=== PATIENT | female | born 1970 | race Caucasian/White ===

== ENCOUNTER 2022-03-27 13:15 | Outpatient (CLI) | payer BC, SELFPAY | END 2022-03-27 13:16 | disposition home or self-care (01) | LOC: OP CLINIC 13:16 | PROVIDERS: PCP Nurse Practitioner Family; Visit Provider Surgery | DX: R19.5 Other fecal abnormalities (principal); K64.8 Other hemorrhoids; K63.5 Polyp of colon; K62.1 Rectal polyp; K22.89 Other specified disease of esophagus; K31.89 Other diseases of stomach and duodenum; R10.13 Epigastric pain | CPT/HCPCS: 43239; 45380; 45385; 88305; 99153; J1200; J2250; J2405; J3010 ==

== ENCOUNTER 2022-06-12 14:52 | Outpatient (CLI) | payer BC, SELFPAY ==
--- NOTE | 2022-06-12 15:00 | CRLHL7_ITS ---
For Patients: As a result of the Century Cures Act, medical imaging exams and procedure reports are released immediately into your electronic medical record. You may view this report before your referring provider. If you have questions, please contact your health care provider. INDICATION: Abdominal pain. COMPARISON: None. TECHNIQUE: 69 mL Isovue-370 IV contrast. FINDINGS: Chest: Unremarkable. Abdomen and pelvis: Dense low-attenuation of the liver parenchyma. Small benign cyst left ovary. Minor atherosclerotic calcification non aneurysmal aorta. IMPRESSION: 1. Dense plaque steatosis. 2. No findings for source of abdominal pain. Please note that all CT scans at this facility use dose modulation, iterative reconstruction, and/or weight-based dosing when appropriate to reduce radiation dose to as low as reasonably achievable. Dictated by Shay Flores MD @ 06/13/2022 1:52:26 PM (Electronically Signed)
--- OUTSIDE RECORDS SUMMARY | 2022-06-12 15:13 | XMS_ITS | Clinical Summary ---
:1970 Author Organization [facility] [place] [address] Care Team Providers Name Role Phone None Primary Care Provider Unavailable Allergies Not on File Medications Not on file Active Problems Not on file Encounters Date Type Specialty Care Team Description 03/27/2022 Lab Requisition Luis Shah MD from Last 3 Months Social History Tobacco Use Types Packs/Day Years Used Date Never Assessed Sex Assigned at Date Recorded Not on file Plan of Treatment Health Maintenance Due Date Last Done Comments COVID-19 vaccine series (#1) 06/25/1972 Tdap 12/24/1982 Depression screening for age 12+ 1983 BMI (ht and wt on same day) for age 18+ 12/24/1989 Hepatitis C screening for age 18-79 12/24/1989 Tetanus booster 1991 Colonoscopy through age 75 12/24/2016 Lipids for age 45-75 12/24/2016 Mammogram for age 45-75 12/24/2016 Zoster (shingles) series for age 50+ (1 of 12/24/2021 2) Influenza for age 50-64 05/15/2022 Pap test for age 21-65 11/29/2024 11/29/2021, 11/29/2021 Procedures Procedure Name Priority Date/Time Associated Diagnosis Comme nts LAB TRACKING EVENT Routine 03/27/2022 2:42 PM CDT PATH TISSUE EXAM Routine 03/27/2022 12:00 PM Resu lts for this CDT procedure are i n the results section. from Last 3 Months Results LAB TRACKING EVENT (03/27/2022 2:42 PM CDT) Specimen Anatomical Collection Method Collection Time Receive d Time (Source) Location / / Volume Laterality Other (Other) Client Collect / 03/27/2022 2:42 PM 03/14 9:53 Unknown CDT PM CDT Luis Shah MD LAB BILL ONLY Performing Organization Address City/State/ZIP Code Phon e Number Chip Estimate [address] [place] [address] LABORATORY-CENTRAL 2000 LABORATORY PATH TISSUE EXAM (03/27/2022 12:00 PM CDT) Component Value Ref Test Analysis Performed At [facility] gist Range Method Time Signature Case Report Pathology Report ?Case: [id number] ? 03/31/2022 [facility] Authorizing Provider: ??Luis Manning MD ?Collected: ? 03/27/2022 1200 ? 5:10 PM HEALTH Ordering Location: ? [facility] LAB ?Received: ?03/28/2022 0907 ? CDT LIZ CUMMINGS Pathologist: ? Yen Ibrahim, DO ? ENTRAL Specimens: ?? A) - Duodenum Biopsy ? LABORATORY ? B) - Stom ach Biopsy ? C) - Antr um Biopsy ? D) - Esop hageal Biopsy, z line ? E) - Hemingway n Biopsy ? F) - Desc ending Colon Biopsy ? G) - Sigm oid Biopsy ? H) - Sigm oid Biopsy ? I) - Rect al Biopsy ? Final A) DUODENUM, BIOPSY: 03/31/2022 [facility] Electronically Diagnosis 1. Normal duodenal mucosa 5:10 PM HEAL TH signed by 2. Negative for celiac disease and other enteropathy CDT LABORATORY-Yen Man, o n B) STOMACH, BIOPSY: LABORATORY 03/31/2022 at 1. Normal gastric antral and body mucosae 5:10 PM 2. Negative for Helicobacter C) STOMACH, ANTRUM, BIOPSY: 1. Erosive reactive gastropathy (see comment) ?? a. Sampling: Antrum ?? b. Distribution: Antrum 2. Negative for chronic inflammation, atrophy and Helicobact er D) ESOPHAGUS, Z-LINE, BIOPSY: 1. Changes consistent with reflux esophagitis including rare neutrophils ?? and reactive changes 2. Negative for eosinophilic esophagitis 3. Negative for columnar mucosa E) COLON, RANDOM, BIOPSY: 1. Normal colonic mucosa 2. Negative for microscopic, active, and chronic colitis F) COLON, DESCENDING, POLYPECTOMY: 1. Tubular adenoma 2. Negative for high grade dysplasia 3. Per the colonoscopy report: ?? a. Polyp size: 4 mm ?? b. Resection: Complete ?? c. Retrieval: Complete G) COLON, SIGMOID, POLYPECTOMY: 1. Tubular adenoma consistent with advanced lamin venecia due to size (see comment) 2. Negative for high grade dysplasia and malignancy 3. Per the colonoscopy report: ?? a. Polyp size: 12 mm ?? b. Resection: Complete ?? c. Retrieval: Complete H) COLON, SIGMOID, POLYPECTOMIES: 1. Hyperplastic polyps (2) I) RECTUM, POLYPECTOMY: 1. Hyperplastic polyp Comment C) The likely etiology is an ongoing non-inflammatory type mucosal injury due to a chemical type of injury; this may be due to ingestion of non- steroidal anti-inflammatory drugs, aspirin (via prostaglan 03/31/2022 [facility] din-mediated injury), excess alcohol, corticosteroids, or bile/alkaline reflux, the latter usually in the setting of a gastroenteric anastomosis. 5:10 PM HEALTH CDT LABORATORY-C G) Advanced adenoma of the c olorectum is defined by the [employer] (ACG) as an adenoma that is 1 cm or more in size, contains an appreciable villous component, or has high grad ENTRAL e dysplasia (Pooja Tapia. [2008 ] Gastroenterology, PMID - [id number]). Patients with advanced adenomas are at an increased risk for synchronous and metachronous additional advanced adenomas. Appropriate follow-up is suggested. LABORATORY Clinical Ms. Oliva is a 51 03/31/2022 [facility] Information y.o. who presents 5:10 PM HEALTH with epigastric CDT LABORATORY-C abdominal pain. ENTRAL Upper endoscopy LABORATORY examination revealed an irregular Z-line, erosive gastropathy, and a normal duodenum. Colonoscopy examination revealed multiple polyps and an otherwise unremarkable colonic mucosa. Gross A) Received in formalin are 5 pink-soler soler mucosal fragments ranging from 2 mm to 4 mm in greatest dimension, which are entirely submitted in one cassette. It is labeled with the patient's name and designated duodenum. 03/31/2022 [facility] Description 5:10 PM HEALTH B) Received in formalin are 5 soler mucosal fragments ranging from 1 mm to 7 mm in greatest dimension, which are entirely submitted in one cassette. It is labeled with the patient's name and designated random stomach. CDT LABORATORY-C ENTRAL C) Received in formalin are 2 soler mucosal fragments averaging 3 mm in greatest dimension, which are entirely submitted in one cassette. It is labeled with the patient's name and designated antral erosions. LABORATORY D) Received in formalin are 2 soler mucosal fragments ranging from 3 mm to 5 mm in greatest dimension, which are entirely submitted in one cassette. It is labeled with the patient's name and designated Z-line. E) Received in formalin are 8 soler mucosal fragments averaging 3 mm in greatest dimension, which are entirely submitted in one cassette. It is labeled with the patient's name and designated random colon. F) Received in formalin are 7 soler mucosal fragments ranging from 1 mm to 3 mm in greatest dimension, which are entirely submitted in one cassette. It is labeled with the patient's name and designated descending colon. G) Received in formalin is a 1 mm soler-pink rubbery polyp. Apparent base is inked blue and bisected. Entirely submitted in a single cassette. It is labeled with the patient's name and designated sigmoid colon polyp. H) Received in formalin are 3 soler mucosal fragments ranging from 6 mm to 11 mm in greatest dimension, which are entirely submitted in one cassette. It is labeled with the patient's name and designated sigmoid colon polyps. I) Received in formalin are 2 soler mucosal fragments ranging from 1 mm to 8 mm in greatest dimension, which are entirely submitted in one cassette. It is labeled with the patient's name and designated rectum. Patrica M Noon 03/28/2022 11:05 AM Microscopic The final 03/31/2022 [facility] Description diagnosis is based 5:10 PM HEALTH on microscopic CDT LABORATORY-C examination of ENTRAL appropriate LABORATORY sections of all specimens. Additional 03/31/2022 [facility] Information Interpreted at [facility], Central Laboratory - [address] [place] [address] [place] [address] 5:10 PM HEALTH CDT LABORATORY-C ENTRAL LABORATORY Specimen Anatomical Collection Method Collection Time Receive d Time (Source) Location / / Volume Laterality Other (Duodenum 03/27/2022 12:00 03/28/20 9:07 Biopsy) PM CDT AM CDT Specimen 03/27/2022 12:00 03/28/2022 9:07 (specimen) PM CDT AM CDT (Stomach Biopsy) Specimen 03/27/2022 12:00 03/28/2022 9:07 (specimen) PM CDT AM CDT (Antrum Biopsy) Specimen 03/27/2022 12:00 03/28/2022 9:07 (specimen) PM CDT AM CDT (Esophageal Biopsy) Specimen 03/27/2022 12:00 03/28/2022 9:07 (specimen) PM CDT AM CDT (Colon Biopsy) Specimen 03/27/2022 12:00 03/28/2022 9:07 (specimen) PM CDT AM CDT (Descending Colon Biopsy) Specimen 03/27/2022 12:00 03/28/2022 9:07 (specimen) PM CDT AM CDT (Sigmoid Biopsy) Specimen 03/27/2022 12:00 03/28/2022 9:07 (specimen) PM CDT AM CDT (Sigmoid Biopsy) Specimen 03/27/2022 12:00 03/28/2022 9:07 (specimen) PM CDT AM CDT (Rectal Biopsy) Luis Shah MD PATHOLOGY/CYTOLOGY Performing Organization Address City/State/ZIP Code Phon e Number Chip Estimate [address] [place] [address] LABORATORY-CENTRAL 2000 LABORATORY from Last 3 Months Insurance Payer Benefit Plan / Subscriber ID Effective Dates Phone Addre ss Type Group [facility] [id number] 2019-Present [address] [address] [place] [address] Guarantor Name Account Type Relation to Date of Phone Bill ing Patient Address Kali Oliva Personal/Family 04/11/1967 [address] (Home) [place] [address] Care Teams Aircraft Maintenance Instructor Relationship Specialty Start Date End Date None PCP - General 02/01/20 .
== END 2022-06-12 14:53 | disposition home or self-care (01) ==
LOC: CT 14:53
PROVIDERS: PCP Nurse Practitioner Family; Visit Provider Nurse Practitioner Family
DX: R10.9 Unspecified abdominal pain (principal); K76.0 Fatty (change of) liver, not elsewhere classified
CPT/HCPCS: 71260; 74177; Q9967

== ENCOUNTER 2022-08-11 15:17 | Outpatient (CLI) | payer BC, SELFPAY ==
--- NOTE | 2022-08-11 15:20 | CRLHL7_ITS ---
For Patients: As a result of the Century Cures Act, medical imaging exams and procedure reports are released immediately into your electronic medical record. You may view this report before your referring provider. If you have questions, please contact your health care provider. BILATERAL SCREENING MAMMOGRAM WITH COMPUTER-AIDED DETECTION AND TOMOSYNTHESIS TECHNIQUE: CC and MLO views were obtained. These mammographic images have been obtained using full-field digital technique. These mammographic images were interpreted with the benefit of computer-aided detection. Breast tomosynthesis was used in this interpretation. COMPARISON FILM: None. Baseline study. FINDINGS: There are scattered areas of fibroglandular density. IMPRESSION: There is no radiographic evidence for malignancy. ASSESSMENT: BI-RADS Category 1: Negative RECOMMENDATION: Routine screening mammogram in 1 year. A lay language report of this examination will be provided to the patient. JOVAN DIAZ M.D. Diagnostic Radiologist [email or web address] Transcribed: 3:[address]/Dictated by: Jovan Diaz MD @ 08/12/2022 1:01:00 PM (Electronically Signed)
--- OUTSIDE RECORDS SUMMARY | 2022-08-11 15:35 | XMS_ITS | Clinical Summary ---
:1970 Author Organization [facility] [place] [address] Care Team Providers Name Role Phone None Primary Care Provider Unavailable Allergies Not on File Medications Not on file Active Problems Not on file Social History Tobacco Use Types Packs/Day Years Used Date Never Assessed Sex Assigned at Date Recorded Not on file Plan of Treatment Upcoming Encounters Date Type Specialty Care Team Description 08/14/2022 Orders Only 09/17/2022 Office Visit Evangelista Teresa MD [address] [place], [place] [address] (Wo rk) Health Maintenance Due Date Last Done Comments COVID-19 vaccine series (#1) 06/25/1972 Tdap 12/24/1982 Depression screening for age 12+ 1983 HIV for age 15-65 12/24/1986 BMI (ht and wt on same day) for age 18+ 12/24/1989 Hepatitis C screening for age 18-79 12/24/1989 Tetanus booster 1991 Lipids for age 45-75 12/24/2016 Mammogram for age 45-75 12/24/2016 Zoster (shingles) series for age 50+ (1 of 12/24/2021 2) Influenza for age 50-64 05/15/2022 Pap test for age 21-65 11/29/2024 11/29/2021, 11/29/2021 Colonoscopy through age 75 03/27/2032 03/27/2022 Results Not on filefrom Last 3 Months Care Teams Belt Glass Sander Relationship Specialty Start Date End Date None PCP - General 02/01/20 .
== END 2022-08-11 15:18 | disposition home or self-care (01) ==
LOC: MAMMO 15:18
PROVIDERS: PCP Nurse Practitioner Family; Visit Provider Nurse Practitioner Family
DX: Z12.31 Encounter for screening mammogram for malignant neoplasm of breast (principal)
CPT/HCPCS: 77063; 77067

== ENCOUNTER 2022-08-14 12:48 | Outpatient (CLI) | payer BC, SELFPAY ==
--- OUTSIDE RECORDS SUMMARY | 2022-08-14 13:27 | XMS_ITS | Clinical Summary ---
:1970 Author Organization [facility] Address [place] [address] Care Team Providers Name Role Phone None Primary Care Provider Unavailable Allergies Not on File Medications Not on file Active Problems Not on file Social History Tobacco Use Types Packs/Day Years Used Date Never Assessed Sex Assigned at Date Recorded Not on file Plan of Treatment Upcoming Encounters Date Type Specialty Care Team Description 09/17/2022 Office Visit Evangelista Teresa MD [address] [place], [place] [address] (Wo rk) Health Maintenance Due Date Last Done Comments COVID-19 vaccine series (#1) 06/25/1972 03/04/2022, 021, 01/16/2021 Tdap 12/24/1982 Depression screening for age 12+ 1983 HIV for age 15-65 12/24/1986 BMI (ht and wt on same day) for age 0412/24/1989 18+ Hepatitis C screening for age 18-79 12/24/1989 Tetanus booster 1991 Lipids for age 45-75 12/24/2016 Mammogram for age 45-75 12/24/2016 Zoster (shingles) series for age 50+ 12/24/2021 (1 of 2) Influenza for age 50-64 05/15/2022 Pap test for age 21-65 11/29/2024 11/29/2021, 11/29/2021 Colonoscopy through age 75 03/27/2032 03/27/2022 Results Not on filefrom Last 3 Months Care Teams Tail Sawyer Relationship Specialty Start Date End Date None PCP - General 02/01/20 .
[2022-08-14 13:39] VITALS: RESP 16
--- NOTE | 2022-08-14 13:39 | ED.NURSE ---
unable to do the test as speed was too fast and stepped off the tredmill.
--- NOTE | 2022-08-14 13:44 | PM.ST ---
Stress Test Note Date Time Seen by Provider: 13:44 Date Seen: 08/14/22 Date of test: 08/14/22 Providers Primary care provider: Ariana Duke Stress test physician: Laisha Perdomo Stress Test Note Stress test ordered: Stress Echo Results discussion: Patient was attempted on a standard Blas protocol treadmill stress echo. Within seconds of the treadmill starting, she jumped off stating it was too fast. I reviewed with her that unfortunately this was not going to go any slower. I did contact her primary care provider Giancarlo Duke whom will schedule a Lexiscan for her. We will not be able to perform the test today. She will be discharged to home. Follow up suggested: Her primary care provider will be ordering a Lexiscan.
== END 2022-08-14 13:35 | disposition home or self-care (01) ==
LOC: STRESS 12:48
PROVIDERS: PCP Nurse Practitioner Family; Visit Provider Nurse Practitioner Family
DX: R07.9 Chest pain, unspecified (principal); R06.09 Other forms of dyspnea

== ENCOUNTER 2022-08-19 09:41 | Outpatient (CLI) | payer BC, SELFPAY ==
--- OUTSIDE RECORDS SUMMARY | 2022-08-19 10:01 | XMS_ITS | Clinical Summary ---
:1970 Author Organization [facility] [place] [address] Care Team Providers Name Role Phone None Primary Care Provider Unavailable Allergies Not on File Medications Not on file Active Problems Not on file Encounters Date Type Specialty Care Team Description 08/14/2022 Orders Only <No scans attac hed> from Last 3 Months Social History Tobacco Use Types Packs/Day Years Used Date Never Assessed Sex Assigned at Date Recorded Not on file Plan of Treatment Upcoming Encounters Date Type Specialty Care Team Description 08/26/2022 Orders Only Kaylin Renteria 08/26/2022 Orders Only Kaylin Renteria 09/17/2022 Office Visit Evangelista Teresa MD [address] [place], [place] [address] (Wo rk) Health Maintenance Due Date Last Done Comments Tdap 12/24/1982 Depression screening for age 12+ 1983 HIV for age 15-65 12/24/1986 BMI (ht and wt on same day) for age 0412/24/1989 18+ Hepatitis C screening for age 18-79 12/24/1989 Tetanus booster 1991 Lipids for age 45-75 12/24/2016 Mammogram for age 45-75 12/24/2016 Zoster (shingles) series for age 50+ 12/24/2021 (1 of 2) COVID-19 vaccine series (4 - Booster 04/29/2022 03/04/2022, 02/14/2021, for Moderna series) 01/16/2021 Influenza for age 50-64 05/15/2022 Pap test for age 21-65 11/29/2024 11/29/2021, 11/29/2021 Colonoscopy through age 75 03/27/2032 03/27/2022 Procedures Procedure Name Priority Date/Time Associated Diagnosis Comme nts ECHO LIMITED WO Routine 08/14/2022 1:42 PM Chest pain Result s for this CONTRAST POLYMER ENGINEER procedure are i n the results section. from Last 3 Months Results ECHO LIMITED WO CONTRAST (08/14/2022 1:42 PM POLYMER ENGINEER) P athologist Signature LVEDD 4.1 cm EJECTION 60 - 65% FRACTION Anatomical Region Laterality Modality HEART Ultrasound Specimen (Source) Anatomical Collection Method Collection Time Re ceived Time Location / / Volume Laterality 08/14/2022 1:20 PM POLYMER ENGINEER Narrative 08/15/2022 2:54 PM POLYMER ENGINEER ECHOCARDIOGRAM SHAHIDA CREWS ? Accessi on#: ?? [id number] : ?1970 51 years Study Date: ?? 08/14/2022 1:20:51 PM Gender: F ?BP: ? 180/102 mmHg Height: 145.00 cm ?BSA: ?1.53 m? ?? Weight: 62.00 kg ? Tech: ? [facility] ? Referring MD: ARIANA DUKE Site: ? [facility] Reading Location: MOBILE-OP Procedure: Limited 2D , Color Doppler an d Limited Spectral Doppler. Indication for study: CP Cardiac Rhythm: Regular.Study quality: G ood. Final Impressions: Limited Echocardiogram performed 1. Patient initially scheduled for a st ress echo but she declined the stress portion of the test so a limited echo was performed. 2. Normal LV size, normal global systol ic function with an estimated EF of 60 - 65%. 3. Right ventricular cavity size is nor mal, global systolic RV function is normal. 4. Mildly enlarged left atrium. 5. The mitral valve is myxomatous, mode rate mitral regurgitation. Comparison There are no prior studies on this patie nt for comparison purposes. Chamber Sizes and Function Normal left ventricular size, normal shilpa bal systolic function with an estimated EF of 60 - 65%. No definite resting regional wall motion abnormality seen. Left atrial size is mildly enlarged. Right vent ricular cavity size is normal, global sy stolic RV function is normal. RV wall thickness is normal. The right atrium is normal. The pulmonary artery is of normal size and origin. The sinus of Valsalva is normal sized. The ascending aorta is no rmal sized. Valves, RV Pressures and Diastolic Funct ion The aortic valve is trileaflet, no steno sis and no regurgitation. The mitral valve is myxomatous, moderate mitral regurgitation. The tricuspid valve is not well visualized. Tricuspid regurgitation is no t well visualized. Unable to assess righ t ventricular systolic pressure. The pulmonic valve is normal. Trace pulmonic regurgitation is present on color flow. Masses, Effusion, Shunts There is no pericardial effusion. The in ferior vena cava is normal sized, respiratory size variation greater than 50%. MEASUREMENTS AND CALCULATIONS 2-D Measurements and LV Function: LVID (d) 4.1 cm LV FS% (2D) ?? 28 % LVID (s) 3.0 cm LVOT diameter 1.4 cm IVS (d) ??1.1 cm HR ?83 bpm LVPW (d) 1.1 cm Ao Sinus 3.7 cm Asc Ao ?? 3.1 cm LA ? 3.9 cm Diastology: Mitral E Peak 0.86 m/s A Peak 1.29 m/s E/A ?0.7 DT ? 162 msec Mitral Valve: MVA ?4.7 cm? ?? MR TVI 2.06 m MV P /2 47 msec . This study was interpreted by an [facility] redited facility. CC: [facility] and [facility]. ??Final ?? Procedure Note Reggie Helms MD - 2 ECHOCARDIOGRAM SHAHIDA CREWS : 1970 51 years Study Date: 08/14 1:20:51 PM Gender: F BP: 180/102 mmHg Height: 145.00 cm BSA: 1.53 m? ?? Weight: 62.00 kg Tech: [facility] Referring MD: ARIANA DUKE Site: [facility] Reading Location: MOBILE-OP Procedure: Limited 2D , Color Doppler an d Limited Spectral Doppler. Indication for study: CP Cardiac Rhythm: Regular.Study quality: G ood. Final Impressions: Limited Echocardiogram performed 1. Patient initially scheduled for a st ress echo but she declined the stress portion of the test so a limited echo was performed. 2. Normal LV size, normal global systol ic function with an estimated EF of 60 - 65%. 3. Right ventricular cavity size is nor mal, global systolic RV function is normal. 4. Mildly enlarged left atrium. 5. The mitral valve is myxomatous, mode rate mitral regurgitation. Comparison There are no prior studies on this patie nt for comparison purposes. Chamber Sizes and Function Normal left ventricular size, normal shilpa bal systolic function with an estimated EF of 60 - 65%. No definite resting regional wall motion abnormality seen. Left atrial size is mildly enlarged. Right ventricular cavity size is normal, global systolic R V function is normal. RV wall thickness is normal. The right atrium is normal. The pulmonary artery is of normal size and origin. The sinus of Valsalva is normal sized. The ascending aorta is normal sized. Valves, RV Pressures and Diastolic Funct ion The aortic valve is trileaflet, no steno sis and no regurgitation. The mitral valve is myxomatous, moderate mitral regurgitation. The tricuspid valve is not well visualized. Tricuspid regurgitation is not well visualized. Unable to assess right ventr icular systolic pressure. The pulmonic valve is normal. Trace pulmonic regurgitation is present on color flow. Masses, Effusion, Shunts There is no pericardial effusion. The in ferior vena cava is normal sized, respiratory size variation greater than 50%. MEASUREMENTS AND CALCULATIONS 2-D Measurements and LV Function: LVID (d) 4.1 cm LV FS% (2D) 28 % LVID (s) 3.0 cm LVOT diameter 1.4 cm IVS (d) 1.1 cm HR 83 bpm LVPW (d) 1.1 cm Ao Sinus 3.7 cm Asc Ao 3.1 cm LA 3.9 cm Diastology: Mitral E Peak 0.86 m/s A Peak 1.29 m/s E/A 0.7 DT 162 msec Mitral Valve: MVA 4.7 cm? ?? MR TVI 2.06 m MV P 1/2 47 msec . This study was interpreted by an [facility] redited facility. CC: [facility] and [facility]. Final Ariana Duke NP ECHO ORD from Last 3 Months Care Teams Plastic Top Assembler Relationship Specialty Start Date End Date None PCP - General 02/01/20 .
== END 2022-08-19 09:42 | disposition home or self-care (01) ==
LOC: RAD 09:41
PROVIDERS: PCP Nurse Practitioner Family; Visit Provider Family Medicine
DX: R07.89 Other chest pain (principal); I51.7 Cardiomegaly; I34.0 Nonrheumatic mitral (valve) insufficiency
CPT/HCPCS: 93308; 93321; 93325